=== PATIENT | male | born 1990 | race African-American/Black ===

== ENCOUNTER 2017-07-23 18:52 | Emergency (ER) | payer MEDICAID ==
[~2017-07-23] VITALS: Ht 185.4 cm; Wt 129.6 kg
[2017-07-23] MEDS ORDERED: KETOROLAC TROMETHAMINE 60 MG/2 ML VIAL IM ONE (19:45)
[2017-07-23 20:30] VITALS: BP 144/68
== END 2017-07-23 21:02 | disposition home or self-care (01) ==
LOC: EMS 18:57
DX: S93.491A Sprain of other ligament of right ankle, initial encounter (principal); X58.XXXA Exposure to other specified factors, initial encounter; Y93.89 Activity, other specified; Y92.69 Other specified industrial and construction area as the place of occurrence of the external cause; Y99.8 Other external cause status
CPT/HCPCS: 73610; 96372; 99284; J1885